=== PATIENT | male | born 1960 | race Caucasian/White ===

== ENCOUNTER 2019-03-03 09:37 | Outpatient (CLI) | payer OTHER ==
--- NOTE | 2019-03-03 10:50 | CT ---
CT ABDOMEN AND PELVIS WITH AND WITHOUT IV CONTRAST: HISTORY: Hematuria COMPARISON: 06/04/2006. FINDINGS: The lung bases are clear. There are few tiny low-density lesions in the liver, too small to character ize. The spleen, pancreas and adrenal glands are normal. There are calculi in the kidneys on either side, measuring up to 4 mm. No calculi are seen in the ure ters or the urinary bladder. No hydroureteronephrosis is seen on either side. There are small low-density lesions in the inferior poles of the kidneys measuring up to 6 mm on the left, likely cys t. The prostate is enlarged. There is normal contrast excretion into the ureters and urinary bladder. No free air, free fluid or lymphadenopathy is noted in the abdomen or pelvis. There are vascular calc ifications without evidence of aneurysmal dilatation of the abdominal aorta. Degenerative changes are present in the spine. A normal-appearing appendix is noted. There are small fat-containing bilate ral inguinal hernia. There is a small fat-containing umbilical hernia. IMPRESSION: 1. No CT evidence of urinary tract obstruction. 2. Bilateral nonobstructing renal calculi. 3. Probable small renal cysts. 4. Prostatic enlargement
== END 2019-03-03 09:38 | disposition home or self-care (01) ==
LOC: CT 09:37
PROVIDERS: ATTEND Urology
DX: R31.29 Other microscopic hematuria (principal); N20.0 Calculus of kidney; N40.0 Benign prostatic hyperplasia without lower urinary tract symptoms
CPT/HCPCS: 74178

== ENCOUNTER 2020-02-05 06:29 | Outpatient (CLI) | payer OTHER ==
[2020-02-06 12:17] LABS: SARS-CoV-2 MS2 Positive; SARS-CoV-2 N Gene Negative; SARS-CoV-2 S Gene Negative; SARS-CoV-2 orf1ab Negative
== END 2020-02-05 06:30 | disposition home or self-care (01) ==
LOC: LABBT 06:29
PROVIDERS: ATTEND Internal Medicine Gastroenterology
DX: Z86.010 Personal history of colon polyps (principal)
CPT/HCPCS: 87635; U0003

== ENCOUNTER 2020-02-09 06:06 | Day surgery (SDC) | payer OTHER ==
--- NOTE | 2020-02-09 09:02 | OP ---
DATE OF PROCEDURE: 02/09/2020 PROCEDURE PERFORMED: Colonoscopy with polypectomy and control of hemorrhage. INDICATION FOR PROCEDURE: Personal history of colonic polyps, surveillance for possible colorectal malignancy. DESCRIPTION OF PROCEDURE: After the risks and benefits of the procedure were explained to the patient including risks of bleeding, infection, perforation, reactions to anesthesia, aspiration, and/or pain, informed consent was obtained. The patient was then taken to the endoscopy suite, where he was maneuvered into the left lateral decubitus position, followed by introduction of deep sedation via propofol and Anesthesia support. Once adequate sedation was achieved, a digital rectal examination was performed followed by introduction of the standard colonoscope, which was then advanced to the terminal ileum without difficulty. The quality of the prep was excellent with adequate visualization achieved. The patient tolerated the procedure well with no immediate perioperative complications. Upon conclusion of the procedure, all equipment was removed from the patient. He was transferred to Day Stay in satisfactory condition. FINDINGS: Digital rectal exam: Normal findings were seen on external examination with normal sphincterotome and no masses palpated. Colon findings: Normal-appearing mucosa was seen within the terminal ileum as well as at the ileocecal valve and appendiceal orifice. A 6 to 7 mm semipedunculated polyp was seen in the cecum and completely removed with snare cautery polypectomy. It was retrieved and placed in a specimen jar for further evaluation. However, on direct visualization of the post polypectomy site, it continued to ooze blood despite direct visualization after 2 to 3 minutes. Subsequently, a hemoclip x1 was then placed across the mucosal defect with good hemostasis achieved and no bleeding noted at the end of the maneuver. A 1.5 cm flat polyp was seen in the mid ascending colon and completely removed with snare cautery polypectomy, but was removed in a piecemeal fashion. The polyp was retrieved and placed in a specimen jar for further evaluation. Given the large mucosal defect, hemoclips x2 was then placed to approximate the mucosal defect with good hemostasis achieved. Normal-appearing mucosa was then seen in the transverse colon and descending colon. A single diverticulum was seen within the sigmoid colon with no evidence of mucosal erythema or colonic narrowing. A 2 to 3 mm polyp was seen in the rectum and completely removed with cold snare polypectomy. It was retrieved and placed in a specimen jar for further evaluation. Small internal hemorrhoids were seen on rectal retroflexion. IMPRESSION: 1. 6 to 7 mm cecal polyp, status post snare cautery polypectomy and hemoclip placement x1. 2. A 1.5 flat mid ascending colonic polyp completely removed in piecemeal fashion with hemoclip placement x2 to approximate the mucosal defect. 3. Mild sigmoid diverticulosis. 4. Small nonbleeding internal hemorrhoids. RECOMMENDATIONS: 1. We will follow up on the polyp results, but would repeat the colonoscopy in 1 year given the piecemeal removal of the large ascending colon polyp. 2. Would recommend a higher fiber diet given the presence of diverticulosis and internal hemorrhoids. 3. Continue current medications. 4. Follow up in the GI clinic as needed. Job ID: [id number]
[2020-02-09] MEDS ORDERED: EPHEDRINE 25 MG/5 ML SYRINGE ONE (13:56)
[2020-02-09] MEDS ORDERED: PROPOFOL 200 MG/20 ML VIAL ONE (13:56)
== END 2020-02-09 08:59 | disposition home or self-care (01) ==
LOC: SDC 06:06
PROVIDERS: ATTEND Internal Medicine
PROC: 0DBK8ZX Excision of Ascending Colon, Via Natural or Artificial Opening Endoscopic, Diagnostic (ICD-10-PCS; principal; 2020-02-09)
PROC: 0DBH8ZX Excision of Cecum, Via Natural or Artificial Opening Endoscopic, Diagnostic (ICD-10-PCS; principal; 2020-02-09)
PROC: 0DBP8ZX Excision of Rectum, Via Natural or Artificial Opening Endoscopic, Diagnostic (ICD-10-PCS; principal; 2020-02-09)
DX: Z12.11 Encounter for screening for malignant neoplasm of colon (principal); D12.0 Benign neoplasm of cecum; D12.2 Benign neoplasm of ascending colon; K62.1 Rectal polyp; K57.30 Diverticulosis of large intestine without perforation or abscess without bleeding; K64.8 Other hemorrhoids; I10 Essential (primary) hypertension; Z86.010 Personal history of colon polyps; Z79.82 Long term (current) use of aspirin; Z79.899 Other long term (current) drug therapy
CPT/HCPCS: 88305; J2704

== ENCOUNTER 2021-09-25 09:58 | Outpatient (CLI) | payer BC, OTHER ==
[2021-09-26 00:06] LABS: SARS-CoV-2 PCR by NAA Not Detected (NotDetected)
== END 2021-09-25 09:59 | disposition home or self-care (01) ==
LOC: LABBT 09:58
PROVIDERS: ATTEND Internal Medicine
DX: Z20.822 Contact with and (suspected) exposure to COVID-19 (principal)
CPT/HCPCS: U0003; U0005